=== PATIENT | female | born 1940 | race Caucasian/White ===

== ENCOUNTER 2017-01-21 12:27 | Outpatient (CLI) | payer MEDICARE, BC ==
--- NOTE | 2017-01-21 15:43 | ULT ---
CAROTID DUPLEX SONOGRAM: History: Vascular disease. TIA. FINDINGS: Mild plaque is present. Color and spectral doppler evaluation, peak systolic velocity of 68 cm/sec, a nd IC to CC ratio of 1.2 suggests no hemodynamically significant stenosis within the extracranial rig ht ICA. Antegrade flow is present within the vertebral artery. There is elevated velocity within the proximal external carotid artery suggestive of significant stenosis. Left: Moderate degree of plaque is present. Color and spectral doppler evaluation, peak systolic velocity o f 78 cm/sec and IC to CC ratio of 0.9 suggests no hemodynamically significant stenosis within the ext racranial left ICA. Antegrade flow is present within the vertebral artery. IMPRESSION: 1. Atherosclerosis. No sonographic evidence of significant extracranial ICA stenosis. 2. Incidental note of elevated velocity within the right external carotid artery suggesting stenosis. POS: [facility]
== END 2017-01-21 12:28 | disposition home or self-care (01) ==
LOC: ULT 12:27
PROVIDERS: ATTEND Internal Medicine
DX: I35.0 Nonrheumatic aortic (valve) stenosis (principal); R01.1 Cardiac murmur, unspecified; I36.1 Nonrheumatic tricuspid (valve) insufficiency; I34.1 Nonrheumatic mitral (valve) prolapse; I70.90 Unspecified atherosclerosis
CPT/HCPCS: 93306; 93880